=== PATIENT | female | born 1950 | race Caucasian/White ===

== ENCOUNTER → 2023-09-27 09:47 | Outpatient (REF) | payer MEDICARE, BC, SELFPAY | LOC: HWRAD 09:47 | PROVIDERS: ATTENDING PHYSICIAN Urology; FAMILY PHYSICIAN Nurse Practitioner | DX: M62.89 Other specified disorders of muscle (principal); N30.10 Interstitial cystitis (chronic) without hematuria | CPT/HCPCS: 76770; 76856 ==

== ENCOUNTER 2023-11-30 13:13 | Outpatient (RCR) | payer MEDICARE, BC, SELFPAY | END 2023-11-30 23:59 | disposition home or self-care (01) | LOC: RPT 13:13 | PROVIDERS: ATTENDING PHYSICIAN Urology; FAMILY PHYSICIAN Nurse Practitioner | DX: N30.20 Other chronic cystitis without hematuria (principal); M62.89 Other specified disorders of muscle; Z73.6 Limitation of activities due to disability | CPT/HCPCS: 97110; 97161; 97530 ==

== ENCOUNTER 2024-01-04 14:58 | Outpatient (RCR) | payer MEDICARE, BC, SELFPAY | END 2024-01-04 23:59 | disposition home or self-care (01) | LOC: RPT 14:58 | PROVIDERS: ATTENDING PHYSICIAN Urology; FAMILY PHYSICIAN Nurse Practitioner | DX: N30.20 Other chronic cystitis without hematuria (principal); M62.89 Other specified disorders of muscle; Z73.6 Limitation of activities due to disability | CPT/HCPCS: 97110; 97112; 97140; 97530 ==

== ENCOUNTER 2024-01-11 13:01 | Outpatient (RCR) | payer MEDICARE, BC, SELFPAY | END 2024-01-11 23:59 | disposition home or self-care (01) | LOC: RPT 13:01 | PROVIDERS: ATTENDING PHYSICIAN Urology; FAMILY PHYSICIAN Nurse Practitioner | DX: N30.20 Other chronic cystitis without hematuria (principal); M62.89 Other specified disorders of muscle; Z73.6 Limitation of activities due to disability | CPT/HCPCS: 97110; 97112 ==